=== PATIENT | male | born 1990 | race Two or more races ===

== ENCOUNTER 2019-10-25 08:00 | Day surgery (SDC) | payer OTHER ==
[2019-10-25] MEDS ORDERED: NEURONTIN300 MG PO (12:01)
[2019-10-25] MEDS ORDERED: TYLENOL ARTHRI650 MG PO (12:01)
[2019-10-25] MEDS ORDERED: ULTRAM50 MG PO (12:01)
[2019-10-25] MEDS ORDERED: MIRALAX17 GM PO (12:01)
== END 2019-10-25 17:10 | disposition home or self-care (01) ==
LOC: CIR.AMB 08:00 → AMB-ENDOS 10:00 → CIR.AMB 10:00
DX: K40.90 Unilateral inguinal hernia, without obstruction or gangrene, not specified as recurrent (principal)

== ENCOUNTER 2020-11-11 13:48 | Outpatient (CLI) | payer OTHER ==
[~2020-11-11 13:48] MED LIST: MIRALAX17 GM PO; NEURONTIN300 MG PO; TYLENOL ARTHRI650 MG PO; ULTRAM50 MG PO
== END 2020-11-11 14:10 | disposition home or self-care (01) ==
LOC: OFIC 805 13:48
PROVIDERS: ATTEND Otolaryngology
DX: H90.3 Sensorineural hearing loss, bilateral (principal)

== ENCOUNTER 2020-12-04 09:36 | Outpatient (CLI) | payer OTHER | END 2020-12-04 14:07 | disposition home or self-care (01) | LOC: LAB 09:36 | PROVIDERS: ATTEND Otolaryngology | DX: H90.0 Conductive hearing loss, bilateral (principal) ==

== ENCOUNTER → 2020-12-05 | Outpatient (CLI) | payer OTHER | END | disposition home or self-care (01) | LOC: MRI 08:15 | PROVIDERS: ATTEND Otolaryngology | DX: H90.0 Conductive hearing loss, bilateral (principal) | CPT/HCPCS: 70552 ==

== ENCOUNTER → 2020-12-15 | Outpatient (CLI) | payer OTHER | END | disposition home or self-care (01) | LOC: OFIC 805 10:30 | PROVIDERS: ATTEND Otolaryngology | DX: H90.0 Conductive hearing loss, bilateral (principal); J32.0 Chronic maxillary sinusitis ==